=== PATIENT | female | born 1935 | race Caucasian/White ===

== ENCOUNTER 2021-12-29 11:14 | Emergency (ER) | payer OTHER ==
[~2021-12-29] VITALS: Ht 162.6 cm; Wt 59.0 kg
== END 2021-12-29 13:51 | disposition home or self-care (01) ==
LOC: ER 11:14
DX: S92.352A Displaced fracture of fifth metatarsal bone, left foot, initial encounter for closed fracture (principal)

== ENCOUNTER 2023-06-11 12:55 | Outpatient (CLI) | payer OTHER | END 2023-06-11 13:04 | disposition home or self-care (01) | LOC: LAB 12:55 | DX: J84.112 Idiopathic pulmonary fibrosis (principal); J43.9 Emphysema, unspecified ==

== ENCOUNTER 2024-05-31 10:28 | Emergency (ER) | payer OTHER ==
[~2024-05-31] VITALS: Ht 160 cm; Wt 62.1 kg
[2024-05-31 12:38] LABS: HEMATOCRIT 37.1 % (36.0-45.00); HEMOGLOBIN 12.4 g/dL (12.0-15.00); MEAN CELL VOLUME 92.1 fL (80.00-100.00); MEAN CORPUSCULAR HEMOGLOBIN 30.8 pg (27.00-32.0); MEAN CORPUSCULAR HGB CONC 33.4 g/dl (32.0-36.0); PLATELET COUNT 140 K/uL (150-450); RED BLOOD COUNT 4.03 M/uL (4.00-6.00); RED CELL DISTRIBUTION WIDTH 13.6 % (11.5-14.5)
[2024-05-31 13:11] LABS: CALCIUM 8.9 mg/dL (8.5-10.1); CREATININE SERUM 0.68 mg/dL (0.55-1.02); GFR 82.04; POTASSIUM 4.01 mEq/L (3.5-5.1)
[2024-05-31 13:48] LABS: ABG PH 7.382 (7.35-7.45); ABG PO2 297.2 mmHg (80-100); ABG pCO2 49.9 mmHg (35-45); BASE EXCESS 2.9 mmol/l; SaO2 99.9 %; Tco2 30.5 mmol/l
[2024-05-31 14:10] LABS: allen test SATISFACTORY; o2 36 %; puncture site RADIAL RIGHT
== END 2024-05-31 18:26 | disposition home or self-care (01) ==
LOC: ER 10:29
PROVIDERS: General Practice
DX: J18.8 Other pneumonia, unspecified organism (principal); R91.1 Solitary pulmonary nodule; Z20.822 Contact with and (suspected) exposure to COVID-19; R42 Dizziness and giddiness